=== PATIENT | female | born 1975 | race Two or more races ===

== ENCOUNTER 2024-12-11 12:54 | Emergency (ER) | payer BC ==
[~2024-12-11] VITALS: Ht 152.4 cm; Wt 81.2 kg
[2024-12-11] MEDS ORDERED: LET SOLN TOPICAL 8 ML UDC TP ONE (14:42)
[2024-12-11] MEDS: LET SOLN TOPICAL 8 ML UDC TP ONE (14:59)
[2024-12-11] MEDS ORDERED: TDAP [DIPH/PERTUSSIS/TET] 0.5 ML VIAL IM ONE (15:00)
[2024-12-11 15:50] VITALS: BP 151/88; TEMP 98.6; O2SAT 97
== END 2024-12-11 15:51 | disposition home or self-care (01) ==
LOC: ER 13:26
DX: S01.01XA Laceration without foreign body of scalp, initial encounter (principal); M19.90 Unspecified osteoarthritis, unspecified site; I10 Essential (primary) hypertension; W18.39XA Other fall on same level, initial encounter; Y93.89 Activity, other specified; Y92.89 Other specified places as the place of occurrence of the external cause; Y99.9 Unspecified external cause status
CPT/HCPCS: 12002; 99282; A6403

== ENCOUNTER 2024-12-19 14:09 | Emergency (ER) | payer BC ==
[~2024-12-19] VITALS: Ht 152.4 cm; Wt 72.6 kg
[2024-12-19 14:18] VITALS: BP 136/75; TEMP 98.1
[2024-12-19 14:35] VITALS: O2SAT 97
== END 2024-12-19 15:38 | disposition home or self-care (01) ==
LOC: ER 14:15
DX: S01.01XD Laceration without foreign body of scalp, subsequent encounter (principal); M19.90 Unspecified osteoarthritis, unspecified site; I10 Essential (primary) hypertension; Z48.02 Encounter for removal of sutures; X58.XXXD Exposure to other specified factors, subsequent encounter